=== PATIENT | female | born 1965 | race Caucasian/White ===

== ENCOUNTER → 2020-08-09 12:22 | Outpatient (CLI) | payer OTHER, SELFPAY ==
[2020-08-09 14:56] LABS: Basophils % 0.9 % (0.1-2.0); Eosinophils # 0.2 K/mm3 (0.0-0.4); Eosinophils % 4.5 % (0.1-12.0); Hematocrit 47.1 % (37.0-47.0); Hemoglobin 15.4 g/dL (12.2-16.2); Lymphocytes # 1.6 K/mm3 (0.7-4.5); Lymphocytes % 32.7 % (10-50); Mean Corpuscular HGB Conc 32.7 g/dL (31.8-35.4); Mean Corpuscular Hemoglobin 30.9 pg (27.0-31.2); Mean Corpuscular Volume 94.5 fl (81-99); Mean Platelet Volume 8.4 fl (7.4-10.4); Monocytes # 0.5 K/mm3 (0.1-1.0); Monocytes % 9.1 % (1.7-9.3); Neutrophils # 2.6 K/mm3 (1.8-7.8); Platelet Count 237 K/mm3 (142-424); Red Blood Count 4.98 M/mm3 (4.20-5.40); Red Cell Distribution Width 13.2 % (11.5-17.5); White Blood Count 4.9 K/mm3 (4.8-10.8)
== END ==
PROVIDERS: PCP Nurse Practitioner; Visit Provider Nurse Practitioner
DX: Z20.828 Contact with and (suspected) exposure to other viral communicable diseases (principal); U07.1 COVID-19; J06.9 Acute upper respiratory infection, unspecified
CPT/HCPCS: 85025; 87275; 87276; U0003

== ENCOUNTER → 2022-09-25 12:00 | Outpatient (CLI) | payer OTHER, SELFPAY ==
[2022-09-25 18:10] LABS: Adenovirus,PCR Not Detected (NotDetected); Bordetella Pertussis Not Detected (NotDetected); Chlamydophila Pneumoniae, PCR Not Detected (NotDetected); Coronavirus 229E Not Detected (NotDetected); Coronavirus NL63 Not Detected (NotDetected); Coronavirus OC43 Not Detected (NotDetected); Coronovirus HKU1,PCR Not Detected (NotDetected); Human Metapneumovirus Not Detected (NotDetected); Influenza A, PCR Not Detected (NotDetected); Influenza AH1, 2009 Not Detected (NotDetected); Influenza AH1, PCR Not Detected (NotDetected); Influenza AH3,PCR Not Detected (NotDetected); Influenza B, PCR Not Detected (NotDetected); Mycoplasma Pneumoniae, PCR Not Detected (NotDetected); Parainfluenza 1, PCR Not Detected (NotDetected); Parainfluenza 2, PCR Not Detected (NotDetected); Parainfluenza 3, PCR Not Detected (NotDetected); Parainfluenza 4, PCR Not Detected (NotDetected); Respiratory Syncytial Virus Not Detected (NotDetected); Rhinovirus/Enterovirus Not Detected (NotDetected)
[2022-09-25 18:31] LABS: Basophils # 0.1 K/mm3 (0-0.2); Basophils % 0.8 % (0.1-2.0); Eosinophils # 0.4 K/mm3 (0.0-0.4); Eosinophils % 4.7 % (0.1-12.0); Hematocrit 49.3 % (37.0-47.0); Hemoglobin 15.9 g/dL (12.2-16.2); Lymphocytes # 1.6 K/mm3 (0.7-4.5); Lymphocytes % 20.3 % (10-50); Mean Corpuscular HGB Conc 32.3 g/dL (31.8-35.4); Mean Corpuscular Hemoglobin 31.2 pg (27.0-31.2); Mean Corpuscular Volume 96.4 fl (81-99); Mean Platelet Volume 10.8 fl (7.4-10.4); Monocytes # 0.6 K/mm3 (0.1-1.0); Monocytes % 7.5 % (1.7-9.3); Neutrophils # 5.2 K/mm3 (1.8-7.8); Neutrophils % 66.7 % (37.0-80.0); Platelet Count 275 K/mm3 (142-424); Red Blood Count 5.11 M/mm3 (4.20-5.40); Red Cell Distribution Width 12.9 % (11.5-17.5); White Blood Count 7.8 K/mm3 (4.8-10.8)
[2022-09-25 19:45] LABS: Coronavirus 19, PCR Detected (NotDetected)
== END ==
PROVIDERS: PCP Family Medicine; Visit Provider Family Medicine
DX: U07.1 COVID-19 (principal); R09.89 Other specified symptoms and signs involving the circulatory and respiratory systems
CPT/HCPCS: 85025; 87581; 87632; 87798; C9803; U0003; U0005

== ENCOUNTER 2024-01-13 14:25 | Outpatient (CLI) | payer BC, SELFPAY ==
[2024-01-13 18:11] LABS: Coronavirus 19, PCR Not Detected (NotDetected); Influenza A, PCR Not Detected (NotDetected); Influenza B, PCR Not Detected (NotDetected)
== END 2024-01-13 23:59 | disposition home or self-care (01) ==
LOC: LAB.DROPOF 01-14 14:26
PROVIDERS: PCP Nurse Practitioner; Visit Provider Nurse Practitioner
DX: J06.9 Acute upper respiratory infection, unspecified (principal)
CPT/HCPCS: 87636

== ENCOUNTER 2024-02-03 08:21 | Outpatient (CLI) | payer BC, SELFPAY ==
--- NOTE | 2024-02-03 08:33 | US_ITS ---
FINAL REPORT CLINICAL HISTORY: epigastric pain FINDINGS: RIGHT UPPER QUADRANT ULTRASOUND Sonographic images of the right upper quadrant were obtained. The pancreas is partially obscured. There is fatty infiltration of the liver. The gallbladder appears normal without evidence of gallstones.The common duct is borderline measuring 6 mm. Limited images of the right kidney are normal. IMPRESSION: Fatty liver. Common duct borderline in size. Reviewed, Interpreted and Dictated by Cory Ceja III, MD Transcribed by Rosina Fishman Authenticated and [facility]
== END 2024-02-03 23:59 | disposition home or self-care (01) ==
LOC: RAD 08:22
PROVIDERS: PCP Nurse Practitioner; Visit Provider Nurse Practitioner
DX: R10.13 Epigastric pain (principal)
CPT/HCPCS: 76705

== ENCOUNTER 2024-02-16 11:40 | Outpatient (CLI) | payer BC, SELFPAY ==
[2024-02-16 18:51] LABS: Basophils # 0.1 K/mm3 (0-0.2); Basophils % 0.8 % (0.1-2.0); Eosinophils # 0.2 K/mm3 (0.0-0.4); Eosinophils % 3.1 % (0.1-12.0); Hematocrit 47.9 % (37.0-47.0); Hemoglobin 15.6 g/dL (12.2-16.2); Lymphocytes # 2.1 K/mm3 (0.7-4.5); Lymphocytes % 30.6 % (10-50); Mean Corpuscular HGB Conc 32.5 g/dL (31.8-35.4); Mean Corpuscular Hemoglobin 30.8 pg (27.0-31.2); Mean Corpuscular Volume 94.8 fl (81-99); Mean Platelet Volume 10.4 fl (7.4-10.4); Monocytes # 0.4 K/mm3 (0.1-1.0); Monocytes % 6.4 % (1.7-9.3); Platelet Count 249 K/mm3 (142-424); Red Blood Count 5.06 M/mm3 (4.20-5.40); Red Cell Distribution Width 13.8 % (11.5-17.5); White Blood Count 6.7 K/mm3 (4.8-10.8)
[2024-02-16 19:46] LABS: Alanine Aminotransferase 26 U/L (12-78); Albumin Level 3.4 g/dl (3.5-5.0); Albumin/Globulin Ratio 1.2 (1.1-1.8); Alkaline Phosphatase 66 U/L (38-126); Anion Gap 12.8 mEq/L (5-15); Aspartate Amino Transferase 27 U/L (14-36); Blood Urea Nitrogen 15 mg/dl (7-17); Calcium 9.2 mg/dl (8.4-10.2); Carbon Dioxide 25 mmol/L (22.0-30.0); Chloride 102 mmol/L (98-107); Estimated Glomerular Filt Rate 102 ml/min (>60); GFR (African American) 123 ML/MIN (>60); Globulin 2.9 g/dL (1.3-3.2); Glucose 265 mg/dl (74-100); HDL Cholesterol 37 mg/dl (40-60); Potassium 3.8 mmoL/L (3.5-5.1); Sodium 136 mmol/L (136-145); Total Protein,Serum 6.3 g/dl (6.3-8.2); Triglycerides 285 mg/dl (30-150); VLDL Cholesterol 57 mg/dL (0-40)
[2024-02-16 19:57] LABS: Chol/HDL Ratio 9.8 (1-3.5); Cholesterol 364 mg/dl (140-200); Direct LDL Cholesterol 246.31 mg/dL (100-129)
[2024-02-16 20:03] LABS: 25-OH Vitamin D, Total < 12.8 ng/mL (30-100)
[2024-02-16 20:16] LABS: Thyroid Stimulating Hormone 3.02 uIU/mL (0.465-4.68)
[2024-02-16 20:34] LABS: Vitamin B12 373 pg/mL (239-931)
== END 2024-02-16 23:59 | disposition home or self-care (01) ==
LOC: LAB.DROPOF 02-17 11:40
PROVIDERS: PCP Nurse Practitioner; Visit Provider Nurse Practitioner
DX: R53.83 Other fatigue (principal); E55.9 Vitamin D deficiency, unspecified; Z13.220 Encounter for screening for lipoid disorders; Z13.1 Encounter for screening for diabetes mellitus; Z68.42 Body mass index [BMI] 45.0-49.9, adult
CPT/HCPCS: 80053; 80061; 82306; 82607; 83036; 84443; 85025

== ENCOUNTER 2024-02-22 10:18 | Outpatient (CLI) | payer BC, SELFPAY ==
--- NOTE | 2024-02-22 10:24 | NM_ITS ---
FINAL REPORT CLINICAL HISTORY: abnormal RUQ U/S, epigastric pain 10:40am 8.13 mci tc choletec 2.5 mcg cck no pain with cck COMPARISON: None FINDINGS: Sequential anterior projection images of the abdomen were obtained after the intravenous injection of 8.13 mCi technetium 99m Choletec. There is normal uptake of radiotracer by the liver. The bile ducts are visualized by 10 minutes. Gallbladder activity is seen by 10 minutes. Bowel activity is noted by 60 minutes. After 1 hour, 2.5 ?g of CCK was injected intravenously for calculation of gallbladder ejection fraction. The gallbladder ejection fraction is 89%, which is within normal limits. IMPRESSION: No evidence of cystic duct or bile duct obstruction. Normal gallbladder ejection fraction of 89%. Reviewed, Interpreted and Dictated by Cory Ceja III, MD Transcribed by Lalitha Sloan Authenticated and [facility]
[2024-02-22] MEDS: SINCALIDE 2.5 MCG in 0.9 % SODIUM CHLORIDE 50 ML 100 MCG IV (12:31)
[2024-02-22] MEDS: ISOTOPE CHOLETECH;1 DOSE (UP TO 15 MCI) IV (12:31)
[2024-02-22] MEDS: SODIUM CHLORIDE 0.9% 10ML SYR (RAD ONLY) 10 ML IV (12:31)
== END 2024-02-22 23:59 | disposition home or self-care (01) ==
LOC: RAD 10:20
PROVIDERS: PCP Nurse Practitioner; Visit Provider Nurse Practitioner
DX: R10.13 Epigastric pain (principal); R93.2 Abnormal findings on diagnostic imaging of liver and biliary tract
CPT/HCPCS: 78227; A9537; J2805

== ENCOUNTER 2024-03-06 09:46 | Outpatient (CLI) | payer BC, SELFPAY ==
--- NOTE | 2024-03-06 09:47 | CT_ITS ---
FINAL REPORT CLINICAL HISTORY: lung cancer screening quit smoking 5 yrs ago, smoked 1 pack per day for 39 yrs COMPARISON: None FINDINGS: CT CHEST LOW DOSE SCREENING HISTORY: Screening exam for lung cancer. 59-year-old female, former smoker who quit 5 years ago, 40 pack year smoking history DOSE: CTDIvol: 2.9 mGy, DLP: 96.38 mGy*cm COMPARISON: None . TECHNIQUE: Axial CT without IV contrast administration using low dose protocol FINDINGS: No acute lung disease is present . There is a 3 mm nodule in the lateral right lower lobe, noncalcified, best seen on image #47. There is mild right lower lobe scar versus atelectasis. Left lung is clear. No pleural or pericardial effusion is seen . No adenopathy or mass lesion is present . IMPRESSION: 1. 3 mm lateral right lower lobe nodule as described above. LUNG RADS CATEGORY 2 RECOMMENDATION: 12 month LDCT follow up Reviewed, Interpreted and Dictated by Alex Pierce MD Transcribed by Lalitha Sloan Authenticated and [facility]
--- NOTE | 2024-03-06 09:47 | MM_ITS ---
PROCEDURE INFORMATION: Exam: MG Bilateral Screening 3D Mammography Exam date and time: 03/06/2024 9:59 AM Age: 59 years old Clinical indication: Screening examination TECHNIQUE: Imaging protocol: Bilateral Screening tomosynthesis and 2D mammography including computer-aided detection (CAD) when performed. COMPARISON: No relevant prior studies available. FINDINGS: MAMMOGRAPHY: Breast composition: The breasts are almost entirely fatty. Mass: None. Architectural distortion: None. Calcifications: No suspicious calcifications. Asymmetric density: None. Skin thickening: None. Axillary adenopathy: None. IMPRESSION: No mammographic evidence of malignancy. Annual screening is recommended unless otherwise clinically indicated. ASSESSMENT: BI-RADS Category 1: Negative
== END 2024-03-06 23:59 | disposition home or self-care (01) ==
LOC: RAD 09:47
PROVIDERS: PCP Nurse Practitioner; Visit Provider Nurse Practitioner
DX: Z12.31 Encounter for screening mammogram for malignant neoplasm of breast (principal); Z12.2 Encounter for screening for malignant neoplasm of respiratory organs; Z87.891 Personal history of nicotine dependence
CPT/HCPCS: 71271; 77063; 77067

== ENCOUNTER 2024-03-29 11:27 | Outpatient (CLI) | payer BC, SELFPAY ==
[2024-03-29 17:51] LABS: Adenovirus,PCR Not Detected (NotDetected); Bordetella Pertussis Not Detected (NotDetected); Chlamydophila Pneumoniae, PCR Not Detected (NotDetected); Coronavirus 229E Not Detected (NotDetected); Coronavirus NL63 Not Detected (NotDetected); Coronavirus OC43 Not Detected (NotDetected); Coronovirus HKU1,PCR Not Detected (NotDetected); Human Metapneumovirus Not Detected (NotDetected); Influenza A, PCR Not Detected (NotDetected); Influenza AH1, 2009 Not Detected (NotDetected); Influenza AH1, PCR Not Detected (NotDetected); Influenza AH3,PCR Not Detected (NotDetected); Influenza B, PCR Not Detected (NotDetected); Mycoplasma Pneumoniae, PCR Not Detected (NotDetected); Parainfluenza 1, PCR Not Detected (NotDetected); Parainfluenza 2, PCR Not Detected (NotDetected); Parainfluenza 3, PCR Not Detected (NotDetected); Parainfluenza 4, PCR Not Detected (NotDetected); Respiratory Syncytial Virus Not Detected (NotDetected); Rhinovirus/Enterovirus Not Detected (NotDetected)
[2024-03-29 22:55] LABS: Coronavirus 19, PCR Detected (NotDetected)
== END 2024-03-29 23:59 | disposition home or self-care (01) ==
LOC: LAB.DROPOF 03-30 09:10
PROVIDERS: PCP Nurse Practitioner; Visit Provider Nurse Practitioner
DX: J06.9 Acute upper respiratory infection, unspecified (principal)
CPT/HCPCS: 87581; 87632; 87635; 87798

== ENCOUNTER 2024-05-15 09:53 | Outpatient (CLI) | payer BC, SELFPAY ==
[2024-05-15 19:37] LABS: Hemoglobin A1C 6.1 % (4.0-6.0)
[2024-05-15 19:52] LABS: Alanine Aminotransferase 18 U/L (12-78); Albumin Level 3.7 g/dl (3.5-5.0); Albumin/Globulin Ratio 1.2 (1.1-1.8); Alkaline Phosphatase 50 U/L (38-126); Anion Gap 10.1 mEq/L (5-15); Aspartate Amino Transferase 27 U/L (14-36); Bilirubin,Total 0.6 mg/dl (0.2-1.3); Blood Urea Nitrogen 24 mg/dl (7-17); Calcium 9.1 mg/dl (8.4-10.2); Carbon Dioxide 24 mmol/L (22.0-30.0); Chloride 111 mmol/L (98-107); Chol/HDL Ratio 5.6 (1-3.5); Cholesterol 219 mg/dl (140-200); Estimated Glomerular Filt Rate 85 ml/min (>60); GFR (African American) 103 ML/MIN (>60); Glucose 108 mg/dl (74-100); HDL Cholesterol 39 mg/dl (40-60); Potassium 4.1 mmoL/L (3.5-5.1); Sodium 141 mmol/L (136-145); Total Protein,Serum 6.7 g/dl (6.3-8.2); Triglycerides 143 mg/dl (30-150); VLDL Cholesterol 29 mg/dL (0-40)
[2024-05-15 20:04] LABS: Creatinine,Urine Random 101 mg/dL (Not Estab.); Microalbumin < 6.000 mg/L (0-16.7)
[2024-05-15 20:07] LABS: Direct LDL Cholesterol 144.02 mg/dL (100-129)
[2024-05-15 22:16] LABS: Vitamin B12 295 pg/mL (239-931)
[2024-05-15 22:52] LABS: 25-OH Vitamin D, Total 36.3 ng/mL (30-100)
== END 2024-05-15 23:59 | disposition home or self-care (01) ==
LOC: LAB.DROPOF 05-16 10:04
PROVIDERS: PCP Nurse Practitioner; Visit Provider Nurse Practitioner
DX: E11.9 Type 2 diabetes mellitus without complications (principal); Z79.84 Long term (current) use of oral hypoglycemic drugs; Z79.85 Long-term (current) use of injectable non-insulin antidiabetic drugs; E55.9 Vitamin D deficiency, unspecified; E78.5 Hyperlipidemia, unspecified; E66.01 Morbid (severe) obesity due to excess calories; Z68.42 Body mass index [BMI] 45.0-49.9, adult
CPT/HCPCS: 80053; 80061; 82043; 82306; 82570; 82607; 83036

== ENCOUNTER 2024-08-09 14:53 | Outpatient (CLI) | payer BC, SELFPAY ==
[2024-08-09 18:06] LABS: Basophils # 0.1 K/mm3 (0-0.2); Basophils % 0.5 % (0.1-2.0); Eosinophils # 0.3 K/mm3 (0.0-0.4); Eosinophils % 3.2 % (0.1-12.0); Hematocrit 48.3 % (37.0-47.0); Hemoglobin 16.3 g/dL (12.2-16.2); Lymphocytes # 1.9 K/mm3 (0.7-4.5); Lymphocytes % 21.7 % (10-50); Mean Corpuscular HGB Conc 33.9 g/dL (31.8-35.4); Mean Corpuscular Hemoglobin 30.1 pg (27.0-31.2); Mean Corpuscular Volume 88.9 fl (81-99); Mean Platelet Volume 9.3 fl (7.4-10.4); Monocytes # 0.6 K/mm3 (0.1-1.0); Monocytes % 6.3 % (1.7-9.3); Neutrophils # 6.1 K/mm3 (1.8-7.8); Neutrophils % 68.3 % (37.0-80.0); Platelet Count 261 K/mm3 (142-424); Red Blood Count 5.43 M/mm3 (4.20-5.40); Red Cell Distribution Width 13.5 % (11.5-17.5); White Blood Count 8.9 K/mm3 (4.8-10.8)
[2024-08-09 18:29] LABS: Alanine Aminotransferase 19 U/L (12-78); Albumin Level 3.8 g/dl (3.5-5.0); Albumin/Globulin Ratio 1.5 (1.1-1.8); Alkaline Phosphatase 54 U/L (38-126); Amylase 44 U/L (30-110); Anion Gap 10.9 mEq/L (5-15); Aspartate Amino Transferase 23 U/L (14-36); Bilirubin,Total 0.9 mg/dl (0.2-1.3); Blood Urea Nitrogen 16 mg/dl (7-17); Calcium 9.2 mg/dl (8.4-10.2); Carbon Dioxide 26 mmol/L (22.0-30.0); Chloride 106 mmol/L (98-107); Estimated Glomerular Filt Rate 102 ml/min (>60); GFR (African American) 123 ML/MIN (>60); Globulin 2.5 g/dL (1.3-3.2); Glucose 116 mg/dl (74-100); Lipase 66 U/L (23-300); Potassium 3.9 mmoL/L (3.5-5.1); Sodium 139 mmol/L (136-145); Total Protein,Serum 6.3 g/dl (6.3-8.2)
[2024-08-09 18:59] LABS: Thyroid Stimulating Hormone 2.34 uIU/mL (0.465-4.68)
== END 2024-08-09 23:59 | disposition home or self-care (01) ==
LOC: LAB.DROPOF 08-10 07:01
PROVIDERS: PCP Nurse Practitioner; Visit Provider Nurse Practitioner
DX: R10.13 Epigastric pain (principal)
CPT/HCPCS: 80050; 80053; 82150; 83690; 84443; 85025

== ENCOUNTER 2024-08-10 15:05 | Outpatient (CLI) | payer BC, SELFPAY ==
[2024-08-10 16:55] LABS: Hemoglobin A1C 5.8 % (4.0-6.0)
== END 2024-08-10 23:59 | disposition home or self-care (01) ==
LOC: LAB.DROPOF 08-15 15:06
PROVIDERS: PCP Nurse Practitioner; Visit Provider Nurse Practitioner
DX: E11.9 Type 2 diabetes mellitus without complications (principal); Z79.84 Long term (current) use of oral hypoglycemic drugs; Z79.85 Long-term (current) use of injectable non-insulin antidiabetic drugs
CPT/HCPCS: 83036

== ENCOUNTER 2025-07-23 07:55 | Outpatient (CLI) | payer OTHER, SELFPAY ==
--- OUTSIDE RECORDS SUMMARY | 2024-04-22 04:00 | XMS_ITS ---
Author Organization [facility] Address [address] [facility] [address] [address] [place] [address] Care Team Providers Care Foot Roentgenologist Name Role Phone Migration, Provider Unavailable Unavailable Allergies Allergen (clinical drug ingredient) Drug/Non Drug Allergy documented on EMR Reaction Allergy Type Onset Date Status erythromycin Medications: erythromycin (uncoded) Unspecified Allergy Active Other: Flu shot (uncoded) Unspecified Allergy Active Medications Medication SIG (Take, Route, Frequency, Duration) Notes Start Date End Date Status [place] 10/08/2020 Active Social History Tobacco Use: Social History Observation Description Date Smoking Status WARNING: Information temporarily unavailable Social History Drugs/Alcohol: Social Info Question Answer Notes Alcohol Screen Did you have a drink containing alcohol in the past year? Never Household: Social Info Question Answer Notes Household Marital status: Tobacco Use: Social Info Question Answer Notes Tobacco Control (Standard) Tobacco use: Former Additional Details Category Social Info Options Details Miscellaneous: Occupation: Disabled Back issues Travel outside of the [place]: Travel History: Uses seat belts Encounters [facility]counter [facility] [address] [facility] [address] [place] [address] 04/22/2024 Provider Migration Plan Of Treatment No Information Progress Notes * Gm SLOANOB:1965 (60 yo F)Acc No.[id number]:04/22/2024 Patient: Stevenson BANSAL :1965 A ge:59 Y S ex:Female Address:[address] [place] [address], [id number] Subjective: * Chief Complaints: * Medical History: 7 [place]: Sexually active - No 7 [place]: Heterosexual Psoriasis Obesity Arthritis Depression * Fraud Analyst History: M enstrual History: Sabrina kwon for No Menses: P ostmenopausal. * OB History: P regnancy History (GPA) T otal Pregnancies 2 , F ull Term 2 , P remature?0, A B. Induced 0 , A B. Spontaneous 0 , E ctopics 0 , M ultiple Births 0 , L iving 2 . G P G ravida: 2 , P deepthi: 2 . P regnancy # 1: B irthDate :01/31/1987 PTL :N Sex :M. P regnancy # 2: B irthDate :06/23/1993 PTL :N Sex :M. * Surgical History: Back surgery Herniated disc 2003 Bilateral Tubal Ligation 1992 Knee surgery * Family History: F amily History Verified.. Father: Hypertension, Benign Essential, Colon Neoplasm, Malignant, Mother: Depressive Disorder, Hypercholesterolemia (Isolated), Sister: Breast Cancer, family HX, Age of Onset: 49. * Social History: T obacco Use: T obacco Control (Standard) T obacco use: F ormer. D rugs/Alcohol: A lcohol Screen D id you have a drink containing alcohol in the past year? N ever.? M iscellaneous: O ccupation: Disabled Back issues. Travel outside of the [place]: Travel History: Uses seat belts. H ousehold: H ousehold M arital status: . * Medications: T akingSkyrizi(Risankizumab-rzaa) Taking Skyrizi(Risankizumab-rzaa) * Allergies: M edications: erythromycin: Unspecified - AllergyOther: Flu shot: Unspecified - AllergyyesAllergies Verified. * * Date:
[2025-07-23 15:22] LABS: Hematocrit 42.6 % (37.0-47.0); Hemoglobin 14.2 g/dL (12.2-16.2); Immature Granulocytes % 0.4 %; Mean Corpuscular HGB Conc 33.3 g/dL (31.8-35.4); Mean Corpuscular Hemoglobin 30.0 pg (27.0-31.2); Mean Corpuscular Volume 90.1 fl (81-99); Nucleated Red Blood Cells % 0 %; Platelet Count 227 K/mm3 (142-424); Red Blood Count 4.73 M/mm3 (4.20-5.40); Red Cell Distribution Width-SD 40.1 fL; White Blood Count 5.5 K/mm3 (4.8-10.8)
[2025-07-23 17:02] LABS: Alanine Aminotransferase 17 U/L (12-78); Albumin Level 3.7 g/dl (3.5-5.0); Albumin/Globulin Ratio 1.2 (1.1-1.8); Alkaline Phosphatase 63 U/L (38-126); Anion Gap 6.0 mEq/L (5-15); Aspartate Amino Transferase 22 U/L (14-36); Bilirubin,Total 1.0 mg/dl (0.2-1.3); Blood Urea Nitrogen 19 mg/dl (7-17); Calcium 8.7 mg/dl (8.4-10.2); Carbon Dioxide 27 mmol/L (22.0-30.0); Chloride 107 mmol/L (98-107); Cholesterol 314 mg/dl (140-200); Creatinine,Serum 0.70 mg/dl (0.52-1.04); Estimated Glomerular Filt Rate 85 ml/min (>60); GFR (African American) 103 ML/MIN (>60); Globulin 3.1 g/dL (1.3-3.2); Glucose 129 mg/dl (74-100); HDL Cholesterol 41 mg/dl (40-60); Potassium 4.0 mmoL/L (3.5-5.1); Sodium 136 mmol/L (136-145); Total Protein,Serum 6.8 g/dl (6.3-8.2); Triglycerides 135 mg/dl (30-150)
[2025-07-23 17:12] LABS: 25-OH Vitamin D, Total 25.7 ng/mL (30-100)
[2025-07-23 17:32] LABS: Thyroid Stimulating Hormone 2.37 uIU/mL (0.465-4.68)
[2025-07-23 17:51] LABS: Vitamin B12 290 pg/mL (239-931)
[2025-07-23 18:49] LABS: Hepatitis C Ab Qual. W/ RFX NEGATIVE (Negative)
[2025-07-23 20:18] LABS: Hemoglobin A1C 6.2 % (4.0-6.0)
[2025-07-24 08:12] LABS: Hepatitis B Surface Antigen Negative (Negative)
--- OUTSIDE RECORDS SUMMARY | 2025-07-25 07:58 | XMS_ITS | Clinical Summary ---
Author Organization [facility] Address [address] [place] [address] Phone Care Team Providers Care Barrel Cutter Name Role Phone Unavailable Primary Care Provider Unavailabl e Allergies Active Allergy Reactions Criticality Noted Date Comments Erythromycin Hives 01/02/2015 Influenza Virus Vaccines Hives 01/02/2015 Medications topiramate (TOPAMAX) 100 mg Oral Tablet Take 100 mg by mouth 2 times daily. Active traMADol (ULTRAM) 50 mg Oral Tablet Take 50 mg by mouth daily as needed for Pain (1/2 - 1 tablet once daily as needed). Active promethazine-de xtromethorphan (PROMETHAZINE-D M) 6.25-15 mg/5 mL Oral SyrupIndication s:Acute sinusitis Take 5 mL by mouth nightly as needed. Disp 6 oz 6 oz 0 01/02/2015 Active Social History Tobacco Use Types Packs/Day Years Used Date Smoking Tobacco: Some Days Cigarettes 0.3 22 Alcohol Use Standard Drinks/Week Comments Not Asked 0 (1 standard drink = 0.6 oz pur e alcohol) Comments No Sex and Gender Information Value Date Recorded Sex Assigned at Not on file Legal Sex Female 4:59 PM EDT Gender Identity Not on file Sexual Orientation Not on file Last Filed Vital Signs Vital Sign Reading Time Taken Comments Blood Pressure 110/70 01/02/2015 10:56 AM EDT Pulse 72 01/02/2015 10:56 AM EDT Temperature 36.7 C (98 F) 01/02/2015 10:56 AM EDT Respiratory Rate 16 01/02/2015 10:56 AM EDT Oxygen Saturation - - Inhaled Oxygen Concentration - - Weight 150.1 kg (331 lb) 01/02/2015 10:56 AM EDT Height 160 cm (5' 3 ) 01/02/2015 10:56 AM EDT Body Mass Index 58.63 01/02/2015 10:56 AM EDT Plan of Treatment Health Maintenance Due Date Last Done Comments Annual Wellness Exam 1966 Hepatitis C Screening 1981 DTaP/TDaP/Td (1 - Tdap) 1982 Breast Cancer Screening 2003 Cologuard 01/30/2008 Colon Cancer Screening 01/30/2008 Colonoscopy 01/30/2008 FIT 01/30/2008 Sigmoidoscopy 01/30/2008 Virtual Colonography 01/30/2008 Pneumococcal Vaccine 50+ (1 of 1 - PCV) 2013 Zoster (1 of 2) 2013 Pap Smear 12/25/2023 12/24/2020 COVID-19 Vaccine (1 - 2024-2 6 season) 2025 Influenza Vaccine (#1) 2025 Cervical Cancer Screening 12/24/2025 HPV/Pap Cotest 12/24/2025 12/24/2020 Hepatitis B Vaccine Aged Out No longe r eligible based on patient's age to complete this topic Meningococcal B Vaccine Aged Out No l onger eligible based on patient's age to complete this topic Procedures Procedure Name Priority Date/Time Associated Diagnosis Comments PROCESS DEVELOPMENT CHEMIST CYTOLOGY REQUEST (PAP ONLY) Routine 12/24/2020 12:00 PM EDT Postmenopausal bleeding from Last 3 Months or Most Recently Relevant to Health Maintenance Results * PROCESS DEVELOPMENT CHEMIST CYTOLOGY REQUEST (PAP ONLY) (12/24/2020 12:00 PM EDT) CASE REPORT Gynecologic Cytology Report Case: [id number] Authorizing Provider: Nicky Felder MD Collected: 12/24/2020 1200 Ordering Location: [facility] Received: 12/25/2020 0852 First Screen: Herrera Lujan CT Specimen: LIQUID-BASED PAP - CERVICAL/ENDOCERV ICAL, Cervix, Endocervical 12/30/2020 11:03 AM EDT [facility] PAP FINAL DIAGNOSIS Negative for intraepithelial lesion or malignancy 12/30/2020 11:[address] [facility] at 1103 EDT MICROSCOPIC DESCRIPTION Microscopic examination is performed and the findings corroborate the diagnosis 12/30/2020 11:[address] [facility] PAP SMEAR ADEQUACY Satisfactory for evaluation 12/30/2020 11:[address] [facility] ENDOCERVICAL T-ZONE Transformation zone present 12/30/2020 11:[address] [facility] EMBEDDED IMAGES 11:[address] [facility] PAP DISCLAIMER The Pap Smear is a screening test that aids in the detection of cervical cancer and cancer precursors. Both false positive and false negative results can occur. The test should be used at regular intervals, and positive results should be confirmed before definitive therapy. Processed using the ThinPrep Ibm Bpm Architect Automated cytology screening device ([employer]). 12/30/2020 11:[address] [facility] Thin Prep ENDOCERVICAL STRUCTURE / Unknown 12/24/2020 12:00 PM EDT 12/25/2020 8:52 AM EDT us Nicky Felder MD CYTOLOGY ORDERABLES Final Re sult [facility] [address] [id number] from Last 3 Months or Most Recently Relevant to Health Maintenance Insurance [employer]
--- OUTSIDE RECORDS SUMMARY | 2025-07-25 07:58 | XMS_ITS | Patient Health Record ---
Author Organization [facility] Address [address] [place] [address] Care Team Providers Care Environmental Director Name Role Phone Migration, Provider Unavailable Unavailable Allergies Allergen (clinical drug ingredient) Drug/Non Drug Allergy documented on EMR Reaction Allergy Type Onset Date Status erythromycin Medications: erythromycin (uncoded) Unspecified Allergy Active Other: Flu shot (uncoded) Unspecified Allergy Active Reason For Referral No Information Medications Medication SIG (Take, Route, Frequency, Duration) [...] Disabled Back issues Travel outside of the [place]: Travel History: Uses seat belts Plan Of Treatment No Information Medical (General) History Medical History History ICD Code 7 [place]: Sexually active - No 7 [place]: Heterosexual Psoriasis Obesity Arthritis Depression Surgical History Surgery Date(Month/Year) Back surgery Herniated disc 2003 Bilateral Tubal Ligation 1992 Knee surgery
--- OUTSIDE RECORDS SUMMARY | 2025-07-25 07:58 | XMS_ITS | Encounter Summary ---
Author Organization [place] [address] Care Team Providers Care Armhole Feller Handstitching Machine Name Role Phone Unavailable Primary Care Provider Unavailabl e Encounter Details Date Type Department Care Team (Latest Contact Info) Description 12/24/2020 Lab [facility] [place] [address] Nicky Felder MD [address] [place] [address] Postmenopausal bleeding Social History Tobacco Use Types Packs/Day Years [...] on file Sexual Orientation Not on file COVID-19 Exposure Response Date Recorded In the last month, have you been in contact with someone who was confirmed or suspected to have Coronavirus / COVID-19? No / Unsure 12/19/2020 5:51 PM EDT documented as of this encounter Plan of Treatment Not on file documented as of this encounter Procedures Procedure Name Priority Date/Time Associated Diagnosis Comments [employer] PORTER CYTOLOGY REQUEST (PAP ONLY) Routine 12/24/2020 12:00 PM EDT Postmenopausal bleeding HPV HIGH RISK WITH REFLEX TO GENOTYPE Routine 12/24/2020 12:00 PM EDT Postmenopausal bleeding PATHOLOGY TISSUE REQUEST Routine 12/24/2020 11:41 AM EDT Postmenopausal bleeding documented in this encounter Results * HPV HIGH RISK WITH REFLEX TO GENOTYPE (12/24/2020 12:00 PM EDT) HPV HR Reflex Not Detected Not Detected 021 7:42 PM EDT [employer] Thin Prep SPECIMEN FROM UTERINE CERVIX / Unknown 12/24/2020 12:00 PM EDT 12/30/2020 1:28 PM EDT Narrative PREFERRED [employer] - 12/31/2020 7:42 PM EDT This test was performed using the FDA Approved APTIMA HPV mRNA assay which detects E6/E7 messenger RNA of High Risk HPV types (16, 18, 31, 33, 35, 39, 45, 51, 52, 56, 58, 59, 66, and 68). This assay is intended for use in women 21 years or older with ASC-US cervical cytology or women 30 years or older. This assay is not intended to substitute for regular cervical cytology screening. Detection of HPV using the APTIMA HPV Assay does not differentiate HPV types and cannot evaluate persistence of any one type. The use of this assay has not been evaluated for the management of HPV vaccinated women, women with prior ablative or excisional therapy, hysterectomy, or who are . Sensitivities may be affected by collection methods, stage of infection, and the presence of interfering substances. Results of this assay should be interpreted in conjunction with other available laboratory and clinical data. Nicky Felder MD MICROBIOLOGY - GENERAL ORDER BRIAN Final Result [facility] [employer] [address] [place] [address] , [place] [address] * [employer]ER[employer] PORTER CYTOLOGY REQUEST (PAP ONLY) (12/24/2020 12:00 PM EDT) CASE REPORT Gynecologic Cytology Report Case: [id number] Authorizing Provider: Nicky Felder MD Collected: 12/24/2020 1200 Ordering Location: [facility] Received: 12/25/2020 0852 First Screen: Herrera Lujan CT Specimen: LIQUID-BASED PAP - CERVICAL/ENDOCERV ICAL, Cervix, Endocervical 12/30/2020 11:03 AM EDT [facility] PAP FINAL DIAGNOSIS Negative for intraepithelial lesion or malignancy 12/30/2020 11:03 AM EDT [facility] at 1103 EDT MICROSCOPIC DESCRIPTION Microscopic examination is performed and the findings corroborate the diagnosis 12/30/2020 11:03 AM EDT [facility] PAP SMEAR ADEQUACY Satisfactory for evaluation 12/30/2020 11:03 AM EDT [facility] ENDOCERVICAL T-ZONE Transformation zone present 12/30/2020 11:03 AM EDT [facility] EMBEDDED IMAGES 11:03 AM EDT [facility] PAP DISCLAIMER The Pap Smear is a screening test that aids in the detection of cervical cancer and cancer precursors. Both false positive and false negative results can occur. The test should be used at regular intervals, and positive results should be confirmed before definitive therapy. Processed using the ThinPrep Death Surveys Coder Automated cytology screening device ([employer]). 12/30/2020 11:03 AM EDT [facility] Thin Prep ENDOCERVICAL STRUCTURE / Unknown 12/24/2020 12:00 PM EDT 12/25/2020 8:52 AM EDT us Nicky Felder MD CYTOLOGY [place]AB[place] [address] * PATHOLOGY TISSUE REQUEST (12/24/2020 11:41 AM EDT) CASE REPORT Surgical Pathology Case: [id number] Authorizing Provider: Nicky Felder MD Collected: 12/24/2020 1141 Ordering Location: [facility] Received: 12/25/2020 0852 Pathologist: Annita [place] MD Specimen: Endometrium 12/26/2020 2:[address] [facility] FINAL DIAGNOSIS Endometrial biopsy: - Inactive endometrium with metaplastic change and stromal breakdown. - Negative for malignancy. 12/26/2020 2:10 PM EDT [facility] at 1410 EDT MICROSCOPIC DESCRIPTION Microscopic examination is performed and the findings corroborate the diagnosis. 12/26/2020 2:10 PM EDT [facility] EMBEDDED IMAGES 12/26/2020 2:10 PM EDT [facility] GROSS DESCRIPTION Received in formalin labeled with the patient's name and endometrium is a 2.8 x 1.1 x 0.3 cm aggregate of hemorrhagic clot material admixed with rachel tissue, which is entirely submitted in one cassette in a filter bag. / TE 12/26/2020 2:10 PM EDT [facility] Tissue SPECIMEN FROM ENDOMETRIUM / Unknown 12/24/2020 11:41 AM EDT 12/25/2020 8:52 AM EDT us Nicky Felder MD PATHOLOGY ORDERABLES Final R esult Performing Organization Address City/State/[facility] Co de Phone Number [facility] [address] [place] [address] [facility] [address] [address] documented in this encounter Visit Diagnoses Diagnosis Postmenopausal bleeding documented in this encounter
--- OUTSIDE RECORDS SUMMARY | 2025-07-25 07:58 | XMS_ITS | Clinical Summary ---
Author Organization [facility] Address [address] [facility] [address] [place] [address] Phone Care Team Providers Care Hem Marker Name Role Phone Aadm MCGARRY, Osvaldo Unavailable [phone] Conditions or Problems Problem Name Problem Code Onset Date Status Entry Date Provider Comment Standard Description Annotate LUMBAR RADICULOPA THY, RIGHT [id number] (SNOMED CT) Active Katie Vocke Lumbar radiculopathy Medications Medication Instructions Start Date Stop Date Generic Name NDC Provider NEURONTIN 300 MG CAPS 1 po bid x 1 week then 1 po tid x 1 week GABAPENTIN 84329241150 Cornelius Daniels MD ZOCOR 10 MG TABS NON GENEVA DOCTOR SIMVASTATIN [id number] Katie Vocke LIDODERM 5 % PTCH 12 HRS ON, 12 HRS OFF LIDOCAINE [id number] Katie Vocke MEDROL 4 MG TBPK 6 DAYS METHYLPREDNISOLONE [id number] Katie Vocke Medications Administered No information available. Allergies, Adverse Reactions, Alerts Allergy Name Reaction Description Start Date Severity Statu s Provider ERYTHROMYCIN Critical Rachel Ramires Results Date Name Value Unit Range Flag Description Lab Report: CBC with Auto Di ff % EOS AUTO 0.2 E3/CMM % 0.1-0.5 Eosinop hils/100 leukocytes in Blood by Automated count MONOCYTE % 0.3 E3/CMM % 0.0-1.3 Monocyt es/100 leukocytes in Blood by Automated count MPV 8.3 UM3 fL 7.0-12.0 Platelet seth n volume [Entitic volume] in Blood by Katrina RDW 11.9 % 11.5-14.5 Erythrocyte distribution width [Ratio] by Automated count MCHC RBC 34.1 g/dL 32.5-35.5 mean corpu scular hemoglobin concentration, RBC MCH 30.7 pg 27.0-33.2 MCH [Entiti c mass] by Automated count MCV 89.9 UM3 fL 80.0-95.8 MCV [Entit ic volume] by Automated count HCT 40.2 % 35.0-45.9 Hematocrit [Volume Fraction] of Blood by Automated count Plan of Care Type Date Detail Pending order Other (Specify) Pending order Other (Specify) Pending order Sed Rate Pending order MRI Lumbar w/o & w/contrast Procedures No information available. Vital Signs Date Name Value Unit Description Height 62 [in_us] height E&M Weight Measured 230 [lb_av] weight E& M Weight Measured 230 [lb_av] weight E& M BP Diastolic 60 mm[Hg] blood pressu re, diastolic BP Systolic 105 mm[Hg] blood pressur e, systolic Immunizations No information available. Advance Directives No information available.
== END 2025-07-23 23:59 ==
LOC: LAB.DROPOF 07-25 07:55
PROVIDERS: PCP Nurse Practitioner; Visit Provider Nurse Practitioner
DX: E55.9 Vitamin D deficiency, unspecified (principal); Z11.59 Encounter for screening for other viral diseases; E66.9 Obesity, unspecified; E11.9 Type 2 diabetes mellitus without complications; E78.5 Hyperlipidemia, unspecified; Z86.39 Personal history of other endocrine, nutritional and metabolic disease
CPT/HCPCS: 80053; 80061; 82306; 82607; 83036; 84443; 85025; 86803; 87340; 87389

== ENCOUNTER 2025-08-06 12:03 | Outpatient (CLI) | payer OTHER, SELFPAY ==
--- NOTE | 2025-08-06 13:00 | MR_ITS ---
FINAL REPORT CLINICAL HISTORY: transient vision changes, worse in right eye headaches COMPARISON: None FINDINGS: Multiplanar MR imaging of the brain was performed without and with contrast. There are a few small foci of abnormal signal in the deep white matter bilaterally, nonspecific. There is no evidence of intracranial hemorrhage or mass. No abnormal extra-axial fluid collection is seen. The ventricular size is within normal limits. There is no evidence of shift of the midline structures. The posterior fossa and brainstem have an unremarkable appearance. No area of abnormal restricted diffusion is identified. No abnormal contrast enhancement is seen. Normal major vessel vascular flow voids are noted. IMPRESSION: No acute intracranial abnormality identified. Reviewed, Interpreted and Dictated by Dell Rasmussen MD Transcribed by Lalitha Sloan Authenticated and [facility]
[2025-08-06] MEDS: GADOTERIDOL INJ 20ML SYRINGE 26 ML IV (13:41)
[2025-08-06] MEDS: SODIUM CHLORIDE 0.9% 10ML SYR (RAD ONLY) 10 ML IV (13:42)
== END 2025-08-06 23:59 | disposition home or self-care (01) ==
PROVIDERS: PCP Nurse Practitioner; Visit Provider Nurse Practitioner
DX: H53.9 Unspecified visual disturbance (principal)
CPT/HCPCS: 70553; A9576

== ENCOUNTER 2025-08-13 13:54 | Outpatient (CLI) | payer OTHER, SELFPAY ==
--- OUTSIDE RECORDS SUMMARY | 2025-08-13 14:13 | XMS_ITS | Clinical Summary ---
Author Organization [facility] Address [address] [place] [address] Phone Care Team Providers Care Cdl Truck Driver Name Role Phone Unavailable Primary Care Provider [...] Procedure Name Priority Date/Time Associated Diagnosis Comments HALF SOLE FITTER CYTOLOGY REQUEST (PAP ONLY) Routine 12/24/2020 12:00 PM EDT Postmenopausal bleeding from Last 3 Months or Most Recently Relevant to Health Maintenance Results * HALF SOLE FITTER CYTOLOGY REQUEST (PAP ONLY) (12/24/2020 12:00 PM EDT) CASE REPORT Gynecologic Cytology Report Case: [id number] Authorizing Provider: Nicky Felder MD Collected: 12/24/2020 1200 Ordering Location: [facility] Received: 12/25/2020 0852 First Screen: Herrera Lujan CT Specimen: LIQUID-BASED PAP - CERVICAL/ENDOCERV ICAL, Cervix, Endocervical 12/30/2020 11:03 AM EDT [facility] PAP FINAL DIAGNOSIS Negative for intraepithelial lesion or malignancy 12/30/2020 11:03 AM EDT [facility] at 1103 EDT MICROSCOPIC DESCRIPTION Microscopic examination is performed and the findings corroborate the diagnosis 12/30/2020 11:03 AM EDT [facility] PAP SMEAR ADEQUACY Satisfactory for evaluation 12/30/2020 11:03 AM EDT [facility] ENDOCERVICAL T-ZONE Transformation zone present 12/30/2020 11:03 AM EDT [facility] EMBEDDED IMAGES 11:03 AM EDT [facility] PAP DISCLAIMER The Pap Smear is a screening test that aids in the detection of cervical cancer and cancer precursors. Both false positive and false negative results can occur. The test should be used at regular intervals, and positive results should be confirmed before definitive therapy. Processed using the ThinPrep Pcat Instructor Automated cytology screening device ([employer] 12/30/2020 11:03 AM EDT [facility] Thin Prep ENDOCERVICAL STRUCTURE / Unknown 12/24/2020 12:00 PM EDT 12/25/2020 8:52 AM EDT us Nicky Felder MD CYTOLOGY ORDERABLES Final Re sult [facility] [address] [place] [id number] from Last 3 Months or Most Recently Relevant to Health Maintenance Insurance [employer] [facility] [employer] [facility] [employer]
--- OUTSIDE RECORDS SUMMARY | 2025-08-13 14:13 | XMS_ITS | Encounter Summary ---
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 (PAP ONLY) Routine 12/24/2020 12:00 PM EDT Postmenopausal bleeding HPV HIGH RISK WITH REFLEX TO GENOTYPE Routine 12/24/2020 12:00 PM EDT Postmenopausal bleeding PATHOLOGY TISSUE REQUEST Routine 12/24/2020 11:41 AM EDT Postmenopausal bleeding documented in this encounter Results * HPV HIGH RISK WITH REFLEX TO GENOTYPE (12/24/2020 12:00 PM EDT) HPV HR Reflex Not Detected Not Detected 021 7:42 PM EDT [employer] Thin Prep SPECIMEN FROM UTERINE CERVIX / Unknown 12/24/2020 12:00 PM EDT 12/30/2020 1:28 PM EDT Narrative PREFERRED Droplet - 12/31/2020 7:42 PM EDT This test [...] MICROBIOLOGY - GENERAL ORDER BRIAN Final Result [facility] Droplet [address] [place] [address] , [place] [address] * 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 PAP FINAL DIAGNOSIS Negative for intraepithelial lesion or malignancy 12/30/2020 11:[address] [facility] at 1103 EDT MICROSCOPIC DESCRIPTION Microscopic examination is performed and the findings corroborate the diagnosis 12/30/2020 11:[address] [facility] PAP SMEAR ADEQUACY Satisfactory for evaluation 12/30/2020 11:[address] [facility] ENDOCERVICAL T-ZONE Transformation zone present 12/30/2020 11:[address] [facility] EMBEDDED IMAGES 11:[address] [facility] PAP DISCLAIMER The Pap Smear is a screening test that aids in the detection of cervical cancer and cancer precursors. Both false positive and false negative results can occur. The test should be used at regular intervals, and positive results should be confirmed before definitive therapy. Processed using the ThinPrep [employer] Crane Operator Automated cytology screening device ([facility]). 12/30/2020 11:[address] [facility] Thin Prep ENDOCERVICAL STRUCTURE / Unknown 12/24/2020 12:00 PM EDT 12/25/2020 8:52 AM EDT us Nicky Felder MD CYTOLOGY ORDERABLES [place] [id number] * PATHOLOGY TISSUE REQUEST (12/24/2020 11:41 AM EDT) CASE REPORT Surgical Pathology Case: [id number] Authorizing Provider: Nicky Felder MD Collected: 12/24/2020 1141 Ordering Location: [facility] Received: 12/25/2020 0852 Pathologist: Annita Adams MD Specimen: Endometrium 12/26/2020 2:10 PM EDT [facility] FINAL DIAGNOSIS Endometrial biopsy: - Inactive endometrium with metaplastic change and stromal breakdown. - Negative for malignancy. 12/26/2020 2:10 PM EDT [facility] at 1410 EDT MICROSCOPIC DESCRIPTION Microscopic examination is performed and the findings corroborate the diagnosis. 12/26/2020 2:10 PM EDT [facility] EMBEDDED IMAGES 12/26/2020 2:10 PM ED[address] [facility] GROSS DESCRIPTION Received in formalin labeled with the patient's name and endometrium is a 2.8 x 1.1 x 0.3 cm aggregate of hemorrhagic clot material admixed with rachel tissue, which is entirely submitted in one cassette in a filter bag. / TE 12/26/2020 2:10 PM EDT [facility] Tissue SPECIMEN FROM ENDOMETRIUM / Unknown 12/24/2020 11:41 AM EDT 12/25/2020 8:52 AM EDT us Nicky Felder MD PATHOLOGY ORDERABLES Final R esult Performing Organization Address City/State/[facility] Co de Phone Number [facility] [address] [place] [address] [facility] [address] [address] documented in this encounter Visit Diagnoses Diagnosis Postmenopausal bleeding documented in this encounter
--- NOTE | 2025-08-13 14:30 | MM_ITS ---
PROCEDURE INFORMATION: Exam: MG Bilateral Screening 3D Mammography Exam date and time: 08/13/2025 2:14 PM Age: 60 years old Clinical indication: Screening examination TECHNIQUE: Imaging protocol: Bilateral Screening tomosynthesis and 2D mammography including computer-aided detection (CAD) when performed. COMPARISON: MG MM DIG SCREENING MAMM BI W/CAD 03/06/2024 9:59 AM FINDINGS: MAMMOGRAPHY: Breast composition: The breasts are almost entirely fatty. Mass: No suspicious masses. Architectural distortion: None. Calcifications: No suspicious calcifications. Asymmetric density: None. Skin thickening: None. Axillary adenopathy: None. IMPRESSION: No mammographic evidence of malignancy. Annual screening is recommended unless otherwise clinically indicated. ASSESSMENT: BI-RADS Category 1: Negative.
--- NOTE | 2025-08-13 15:00 | CT_ITS ---
FINAL REPORT TECHNIQUE: Thin section axial images were obtained through the lungs using a low-dose technique per lung cancer screening protocol. Reconstruction images were obtained using the axial data. Exam was performed using dose reduction technique. CLINICAL HISTORY: lung cancer screening former smoker quit 6 years ago 2ppd x34 years FINDINGS: CTDL vol: 2.90 DLP: 99.51 Lungs: No acute pulmonary abnormality. There is a 4 mm nodule along the left major fissure on series 4, image 39, likely intrafissural lymph node. There is a second 4 mm nodule along the left major fissure on image 42, also likely intrafissural lymph node. Lymph nodes: No thoracic lymphadenopathy. Mediastinum: Heart size is normal. Pleura/pericardium: No pleural or pericardial effusion. Other: No acute abnormality in the upper abdomen. IMPRESSION: Nodules along the left major fissure, likely intrafissural lymph nodes. Lung RADS: 2 Recommendation: Recommend low-dose chest CT in 12 months. Reviewed, Interpreted and Dictated by Veronica Hannon MD Transcribed by Rosina Fishman Authenticated and [facility]
== END 2025-08-13 23:59 | disposition home or self-care (01) ==
LOC: RAD 13:55
PROVIDERS: PCP Nurse Practitioner; Visit Provider Nurse Practitioner
DX: Z12.31 Encounter for screening mammogram for malignant neoplasm of breast (principal); Z12.2 Encounter for screening for malignant neoplasm of respiratory organs; Z87.891 Personal history of nicotine dependence; R91.8 Other nonspecific abnormal finding of lung field
CPT/HCPCS: 71271; 77063; 77067